=== PATIENT | male | born 2000 | race Caucasian/White ===

== ENCOUNTER 2018-10-26 21:24 | Emergency (ER) | payer OTHER ==
[~2018-10-26] VITALS: Ht 172.7 cm; Wt 61.2 kg
[2018-10-26 21:28] VITALS: Ht 172.7 cm; Wt 61.2 kg
[2018-10-26 23:14] VITALS: BP 127/60
== END 2018-10-26 23:14 | disposition home or self-care (01) ==
LOC: ED 21:24
DX: S91.312A Laceration without foreign body, left foot, initial encounter (principal); W22.8XXA Striking against or struck by other objects, initial encounter; Y93.89 Activity, other specified; Y92.89 Other specified places as the place of occurrence of the external cause; Y99.8 Other external cause status
CPT/HCPCS: J2001

== ENCOUNTER 2018-11-23 18:00 | Emergency (ER) | payer OTHER ==
[~2018-11-23] VITALS: Ht 162.6 cm; Wt 60.3 kg
[2018-11-23 18:14] VITALS: Ht 162.6 cm; Wt 60.3 kg
[2018-11-23 18:40] LABS: BASOPHIL % 0.6 % (0-2); PLATELET COUNT 170 x10^3mcL (130-400); RED CELL DISTRIBUTION WIDTH 13.4 % (11.5-14.5)
[2018-11-23 18:56] LABS: CALCIUM 8.6 mg/dL (8.5-10.1); CARBON DIOXIDE 29.5 mmol/L (21-32); CHLORIDE SERUM 104 mmol/L (98-107); CREATININE SERUM 1.1 mg/dL (0.7-1.3); GFR1 > 60 mL/min; GLUCOSE SERUM 119 mg/dL (74-106); POTASSIUM SERUM 3.4 mmol/L (3.5-5.1); SODIUM SERUM 142 mmol/L (136-145)
[2018-11-23 19:01] LABS: ALBUMIN 4.4 g/dL (3.4-5.0); ALKALINE PHOSPHATASE 85 U/L (46-116); ALT/SGPT 20 U/L (16-63); AST/SGOT 22 U/L (15-37); BILIRUBIN TOTAL 0.25 mg/dL (0.20-1.00); LIPASE 136 IU/L (73-393); TOTAL PROTEIN, SERUM 7.6 g/dL (6.4-8.2)
[2018-11-23 20:02] VITALS: BP 123/63
== END 2018-11-23 20:04 | disposition home or self-care (01) ==
LOC: ED 18:00
PROVIDERS: Emergency Medicine
DX: A08.4 Viral intestinal infection, unspecified (principal); F31.9 Bipolar disorder, unspecified
CPT/HCPCS: J2405; J7030

== ENCOUNTER 2019-05-10 18:18 | Emergency (ER) | payer OTHER ==
[~2019-05-10] VITALS: Ht 162.6 cm; Wt 63.5 kg
[2019-05-10 18:26] VITALS: Ht 162.6 cm; Wt 63.5 kg
[2019-05-10 18:59] VITALS: BP 123/78
== END 2019-05-10 18:59 | disposition home or self-care (01) ==
LOC: ED 18:18
DX: B34.9 Viral infection, unspecified (principal); K59.00 Constipation, unspecified; R11.0 Nausea

== ENCOUNTER 2019-06-09 10:48 | Emergency (ER) | payer OTHER ==
[~2019-06-09] VITALS: Ht 165.1 cm; Wt 59.9 kg
[2019-06-09 10:57] VITALS: Ht 165.1 cm; Wt 59.9 kg
[2019-06-09 12:31] VITALS: BP 110/56
== END 2019-06-09 12:31 | disposition home or self-care (01) ==
LOC: ED 10:48
DX: K12.2 Cellulitis and abscess of mouth (principal)
CPT/HCPCS: J2001